=== PATIENT | female | born 1950 | race Caucasian/White ===

== ENCOUNTER 2017-03-15 18:01 | Observation (INO) | payer BC, MEDICARE ==
[~2017-03-15] VITALS: Ht 157.5 cm; Wt 95.0 kg
[~2017-03-15 18:01] MED LIST: ASPIRIN 32325 MG/TA1 PO; BENADRYL ALLERG25 M1 PO; CELEBREX 200MG200 MG PO; CELEXA 20MG20 MG/TAB PO; COLACE 100100 MG/CAP PO; FLEXERIL 1010 MG/TAB PO; FOLIC ACID 40400 MCG PO; HCTZ 25MG TAB25 MG PO; INDERAL 10MG10 MG PO; IRON TABLETS325 MG PO; MELATONIN5 M1 SL; MOTRIN 800800 MG/TAB PO; NORCO 325 MG-7.1 TAB PO; PERCOCET 325 MG1 TA2 PO; ULTRAM 50MG TAB50 MG PO; VITAMIN C500 MG PO; ZESTRIL 20MG TA20 MG PO
[2017-03-15 18:53] LABS: BASO % 0.3 % (0.0-2.0); GRAN # 5.7 (1.4-6.5); GRAN % 76.3 % (42.2-75.2); HEMATOCRIT 37.7 % (37.0-47.0); HEMOGLOBIN 12.6 g/dl (12.5-16.0); LYMPH % 13.5 % (20.0-51.0); MEAN CELL VOLUME 97 fl (80.0-100.0); MEAN CORPUSCULAR HEMOGLOBIN 33 pg (27.0-31.0); MEAN CORPUSCULAR HGB CONC 33 g/dl (33.0-37.0); MEAN PLATELET VOLUME 10.5 fl (7.4-10.4); MONO # 0.7 (0.1-0.6); MONO % 9.1 % (1.7-9.3); PLATELET COUNT 155 K/mm3 (130-400); RED BLOOD COUNT 3.87 M/mm3 (4.10-5.30); WHITE BLOOD COUNT 7.5 K/mm3 (4.8-10.8)
[2017-03-15 19:03] LABS: ADJUSTED CALCIUM 8.9 mg/dL (8.4-10.2); ALBUMIN 4.2 gm/dL (3.5-5.0); BILIRUBIN,TOTAL 0.4 mg/dL (0.0-1.0); CALCIUM 9.1 mg/dL (8.4-10.2); CREATININE, serum 0.86 mg/dL (0.52-1.25); POTASSIUM 3.9 mmol/L (3.4-5.0); TOTAL PROTEIN 7.7 gm/dL (6.4-8.2)
[2017-03-15 19:21] LABS: INFLUENZA A NEGATIVE; INFLUENZA B NEGATIVE
[2017-03-15 21:09] VITALS: BP 110/55; PULSE 72; TEMP 100
[2017-03-15] MEDS ORDERED: NEURONTIN600 MG/TAB PO (21:43)
[2017-03-15] MEDS ORDERED: LEXAPRO20 MG PO (21:43)
[2017-03-16 00:14] VITALS: BP 120/55; PULSE 66; TEMP 99.2
[2017-03-16 04:15] VITALS: BP 108/55; PULSE 67; TEMP 100.1
[2017-03-16 07:37] VITALS: BP 130/64; PULSE 75; TEMP 99.5
[2017-03-16 11:52] VITALS: BP 122/61; PULSE 61; TEMP 99.3
[2017-03-16] MEDS ORDERED: CHERATUSSIN AC240 ML PO (14:43)
== END 2017-03-16 15:55 | disposition home or self-care (01) ==
LOC: COL.ER 18:01 → MEDICAL 20:20
PROVIDERS: Emergency Medicine
DX: R11.2 Nausea with vomiting, unspecified (principal); E87.1 Hypo-osmolality and hyponatremia; R19.7 Diarrhea, unspecified; I10 Essential (primary) hypertension; J10.1 Influenza due to other identified influenza virus with other respiratory manifestations; Z90.710 Acquired absence of both cervix and uterus; Z80.42 Family history of malignant neoplasm of prostate
CPT/HCPCS: J1650; J1885; J2405; J7030

== ENCOUNTER → 2018-09-11 | Outpatient (CLI) | payer BC ==
[~2018-09-11] MED LIST changes: +CHERATUSSIN AC240 ML PO; +LEXAPRO20 MG PO; +NEURONTIN600 MG/TAB PO
== END ==
LOC: MC.RAD 09:39
DX: Z12.31 Encounter for screening mammogram for malignant neoplasm of breast (principal)

== ENCOUNTER → 2018-10-04 | Outpatient (CLI) | payer BC | LOC: COL.RAD 07:51 | DX: K76.9 Liver disease, unspecified (principal); K57.30 Diverticulosis of large intestine without perforation or abscess without bleeding; R50.9 Fever, unspecified; Z87.19 Personal history of other diseases of the digestive system | CPT/HCPCS: Q9967 ==

== ENCOUNTER → 2018-12-04 | Outpatient (CLI) | payer BC | LOC: COL.RAD 09:14 | DX: D18.03 Hemangioma of intra-abdominal structures (principal); K76.9 Liver disease, unspecified | CPT/HCPCS: A9585 ==

== ENCOUNTER → 2022-01-17 | Outpatient (CLI) | payer BC, MEDICARE | LOC: MC.RAD 01-02 11:00 | DX: Z12.31 Encounter for screening mammogram for malignant neoplasm of breast (principal); N64.9 Disorder of breast, unspecified ==

== ENCOUNTER → 2022-01-19 | Outpatient (CLI) | payer BC | LOC: MC.RAD 08:09 | DX: N63.11 Unspecified lump in the right breast, upper outer quadrant (principal) ==